=== PATIENT | male | born 1970 | race American Indian/Alaskan Native ===

== ENCOUNTER 2018-11-14 15:27 | Emergency (ER) | payer OTHER ==
[2018-11-14] MEDS ORDERED: HYDROcod/ACETAM 5/325 MG TABLET PO STA (16:20)
--- NOTE | 2018-11-14 16:23 | ED Physician Documentation ---
PD HPI UPPER EXT INJURY - Stated complaint Stated Complaint: RT SHOULDER PX - Chief complaint Chief Complaint: Trauma Ext - History obtained from History obtained from: Patient - History of Present Illness Location: Right (48-year-old gentleman who is up-to-date on tetanus fell a few feet off a ladder, injured his right shoulder reaching for the ladder while he was going down and also scraped his left elbow. Pain in the right shoulder is moderate to severe. No head or neck injury.) Review of Systems Cardiac: denies: Chest pain / pressure, Palpitations Respiratory: denies: Dyspnea, Cough GI: denies: Abdominal Pain Musculoskeletal: denies: Neck pain, Back pain PD PAST MEDICAL HISTORY - Present Medications Home Medications: Ambulatory Orders Medication Instructions Recorded Confirmed Hydrocodone/Acetaminophen 1 - 2 each PO Q6H PRN #14 tablet 11/14/18 [Hydrocodon-Acetaminophen 5-325] - Allergies Allergies/Adverse Reactions: Allergies Allergy/AdvReac Type Severity Reaction Status Date / Time No Known Drug Allergies Allergy Verified 11/14/18 15:43 PD ED PE NORMAL - Vitals Vital signs reviewed: Yes - General General: Alert and oriented X 3, No acute distress - Neck Neck: Supple, no meningeal sign, No bony TTP - Extremities Extremities: Other (Right shoulder is mildly tender posteriorly. He has basically no range of motion in internal or external rotation or abduction but I am able to get him off the bed a little bit with passive abduction. Diminished sensation over the deltoid and in all areas of the hand and normal strength. There is a small abrasion over the left elbow without tenderness or limited range of motion.) - Neuro Neuro: Alert and oriented X 3, Normal speech Results - Vitals Vitals: Vital Signs - 24 hr 11/14/18 11/14/18 15:37 17:34 Temperature 36.4 C L 36.3 C L Heart Rate 77 63 Respiratory 16 12 Rate Blood Pressure 151/96 H 159/93 H O2 Saturation 98 96 Oxygen O2 Source Room air - Rads (name of study) c SPINE ct Radiology: EMP read contemporaneously (DDD WITH R NF NARROWING) XR R shoulder and L elbow Radiology: EMP read contemporaneously (normal) PD MEDICAL DECISION MAKING - ED course ED course: 48-year-old gentleman who was reaching out while falling from a ladder and injured his right shoulder. Most consistent with a rotator cuff but range of motion is so limited on evaluation that is hard to say. He does not seem dislocated. He also has diminished sensation throughout the right arm. He has had trouble in the past with disc disease on the right and had a foraminal surgery a few years ago on the right but his numbness throughout the right arm is worse today. He has no neck tenderness though. Departure - Departure Disposition: 01 Home, Self Care Clinical Impression: Right rotator cuff tear, Abrasion of left elbow, Cervical radiculopathy at C5 Condition: Good Record reviewed to determine appropriate education?: Yes Instructions: ED Torn Rotator Cuff Follow-Up: [facility] [Provider Group] - Within 1 week Prescriptions: Hydrocodone/Acetaminophen [Hydrocodon-Acetaminophen 5-325] 1 - 2 each PO Q6H PRN #14 tablet PRN Reason: pain Comments: Come out of the sling several times a day and do the exercises as shown. Call the orthopedics office today or tomorrow for the next available appointment. Do not drink or drive while taking narcotic pain medication. Note that many narcotic pain relievers also contain Tylenol/acetaminophen. Please ensure that your total dose of acetaminophen from all sources does not exceed 3 g (3000 mg) per day. You may get constipated while on this medication. Take a stool softener such as Colace twice a day while you are on it. Also add an zqsx-mai-deqznbl laxative such as senna or MiraLAX on any day that you do not have a bowel movement. If you received a narcotic pain medication or sedative while in the emergency department, do not drive for the next 24 hours. Your blood pressure was elevated today on check into the emergency department. This does not mean that you have hypertension, it is a common phenomenon to come to the emergency department and have elevated blood pressure. I recommend that you see your primary care physician within the week to have it rechecked when you are feeling better. Forms: Activity restrictions Discharge Date/Time: 11/14/18 17:55
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
--- NOTE | 2018-11-14 17:23 | CT Report ---
Reason: fall, right arm paresthesia Procedure Date: 11/14/2018 Accession Number: [id number] / [id number] Procedure: CT - CERVICAL SPINE WO CPT Code: FULL RESULT: EXAM: CT CERVICAL SPINE WITHOUT CONTRAST DATE: 11/14/2018 05:02 PM. HISTORY: Fall, right arm paresthesia. COMPARISONS: None. TECHNIQUE: Thin-section axial images were acquired of the cervical spine without contrast. Post-processing: Coronal and sagittal reformats. Other: None. In accordance with CT protocol optimization, one or more of the following dose reduction techniques were utilized for this exam: automated exposure control, adjustment of mA and/or KV based on patient size, or use of iterative reconstructive technique. FINDINGS: Alignment: No scoliosis or spondylolisthesis. Bones: No fracture or bone lesion. Interspace Levels/Facets: C1-C2: Unremarkable. C2-C3: Unremarkable. C3-C4: Unremarkable. C4-C5: Unremarkable. C5-C6: Mild posterior bulging disk osteophyte complex resulting in mild right neural foraminal stenosis. C6-C7: Mild posterior degenerative bulging disk osteophyte complex resulting in mild right neural foraminal stenosis. C7-T1: Unremarkable. Musculature: Normal. No fatty atrophy. Other: The paravertebral and prevertebral soft tissues are unremarkable. The lung apices are clear. IMPRESSION: 1. No cervical spine fracture or malalignment. 2. Degenerative bulging disk osteophyte complexes at C5-C6 and C6-C7 resulting in mild right neural foraminal stenosis. RADIA
[2018-11-14 17:35] VITALS: BP 159/93
== END 2018-11-14 17:55 | disposition home or self-care (01) ==
LOC: ED 15:27
DX: S46.011A Strain of muscle(s) and tendon(s) of the rotator cuff of right shoulder, initial encounter (principal); S50.312A Abrasion of left elbow, initial encounter; W11.XXXA Fall on and from ladder, initial encounter; M50.122 Cervical disc disorder at C5-C6 level with radiculopathy; R03.0 Elevated blood-pressure reading, without diagnosis of hypertension
CPT/HCPCS: 72125; 73030; 73080; 99283; A9270

== ENCOUNTER 2019-05-31 11:22 | Emergency (ER) | payer OTHER ==
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
[2019-05-31 16:06] VITALS: BP 150/80
== END 2019-05-31 16:05 | disposition home or self-care (01) ==
LOC: ED 11:22
DX: S46.811A Strain of other muscles, fascia and tendons at shoulder and upper arm level, right arm, initial encounter (principal); V43.52XA Car driver injured in collision with other type car in traffic accident, initial encounter; Y92.410 Unspecified street and highway as the place of occurrence of the external cause; M50.123 Cervical disc disorder at C6-C7 level with radiculopathy; M48.02 Spinal stenosis, cervical region
CPT/HCPCS: 72141; 99283; 99284

== ENCOUNTER 2022-06-20 16:06 | Emergency (ER) | payer OTHER ==
[2022-06-20 16:16] VITALS: BP 155/92
--- NOTE | 2022-06-20 16:30 | ED Physician Documentation ---
PD HPI LOWER EXT INJURY - Stated complaint Stated Complaint: LT KNEE INJ - Chief complaint Chief Complaint: Ext Problem - History obtained from History obtained from: Patient - Additional information Additional information: Patient is a 52-year-old presenting for evaluation of left knee pain that has been present since the end of March. Patient was on a ladder and slid on the ladder injuring his left knee. He reports having daily pain since that time but has continued to work While wearing a knee brace. He has not had prior evaluation for this knee. He has had prior injury to this knee with a meniscus tear. Patient has been using Aleve regularly.Pain is worse with movements and ambulating. It is better at rest. He denies injury elsewhere. Review of Systems Constitutional: denies: Fever Cardiac: denies: Chest pain / pressure Respiratory: denies: Dyspnea GI: denies: Abdominal Pain Musculoskeletal: reports: Joint pain Neurologic: denies: Headache, Head injury PD PAST MEDICAL HISTORY - Past Surgical History Past Surgical History: Yes Ortho: Rotator cuff repair, Other - Present Medications Home Medications: Ambulatory Orders Medication Instructions Recorded Confirmed Cyclobenzaprine [Flexeril] 10 mg PO TID PRN #20 tablet 05/31/19 predniSONE [Prednisone] 40 mg PO DAILY #10 tablet 05/31/19 Lidocaine Patch 5% [Lidoderm Patch] 1 patch TOP DAILY PRN #10 patch 06/20/22 - Allergies Allergies/Adverse Reactions: Allergies Allergy/AdvReac Type Severity Reaction Status Date / Time No Known Drug Allergies Allergy Verified 06/20/22 16:16 - Social History Does the pt smoke?: No Smoking Status: Never smoker Does the pt drink ETOH?: Yes Does the pt have substance abuse?: No PD ED PE NORMAL - General General: Alert and oriented X 3, No acute distress, Well developed/nourished - HEENT HEENT: Atraumatic - Neck Neck: Supple, no meningeal sign - Cardiac Cardiac: RRR - Respiratory Respiratory: No respiratory distress - Derm Derm: Warm and dry - Extremities Extremities: No deformity, No tenderness to palpate, No edema, No calf tenderness / cord, Other (No laxity or instability noted to left knee, no erythema or swelling; Pain with range of motion; Distal pulses intact) Results - Vitals Vitals: Vital Signs - 24 hr 06/20/22 16:13 Temperature 35.8 C L Heart Rate 73 Respiratory 16 Rate Blood Pressure 155/92 H O2 Saturation 99 Oxygen O2 Source Room air PD Medical Decision Making - ED course Complexity details: reviewed results, re-evaluated patient ED course: Patient presenting for evaluation of left knee pain that occurred 4 months ago. He is ambulatory. I do not see signs of infection, erythema. Neurovascularly intact. His x-rays negative for fracture or dislocation. Discussed other causes of pain and that patient would likely need a PCP for further evaluation. Patient is receptive to trial of lidocaine patches. He is counseled on concerning symptoms to return for. Departure - Departure Disposition: 01 Home, Self Care Clinical Impression: Left knee injury Condition: Stable Instructions: ED Knee Pain [facility] Follow-Up: Manisha Cabrera PA-C [Provider Admit Priv/Credential] - Prescriptions: Lidocaine Patch 5% [Lidoderm Patch] 1 patch TOP DAILY PRN #10 patch PRN Reason: pain Comments: The x-ray of your left knee results are as follows IMPRESSION: No acute left knee fracture or dislocation. Mild to moderate tricompartmental osteoarthritis most notably in medial femoral tibial compartment. No significant joint effusion. No gross soft tissue abnormalities. Please have close follow-up with your primary care doctor as you may need further testing or treatment for your left knee. I included the name of a provider that is accepting new patients this week.I have also sent a prescription for lidocaine patches to the [facility] pharmacy.
--- NOTE | 2022-06-20 16:48 | XRAY Report ---
PROCEDURE: Knee 3 View LT INDICATIONS: fall in sept/pain TECHNIQUE: 4 views of the left knee(s) were acquired. COMPARISON: None. FINDINGS: Bones: No fractures or dislocations. Mild to moderate tricompartmental osteoarthritis in left knee i s seen most notably in medial femoral tibial compartment. No suspicious bony lesions. Soft tissues: No joint effusion. No suspicious soft tissue calcifications. IMPRESSION: No acute left knee fracture or dislocation. Mild to moderate tricompartmental osteoarthr itis most notably in medial femoral tibial compartment. No significant joint effusion. No gross soft tissue abnormalities. Reviewed by: Timothy Brush MD on 06/20/2022 4:47 PM PST Approved by: Timothy Brush MD on 06/20/2022 4:47 PM PST Station ID: [id number]
[2022-06-20] MEDS: LIDOCAINE PATCH 5% TOP STA (17:19)
== END 2022-06-20 17:21 | disposition home or self-care (01) ==
LOC: ED 16:06
DX: S89.92XA Unspecified injury of left lower leg, initial encounter (principal); W11.XXXA Fall on and from ladder, initial encounter; Y99.0 Civilian activity done for income or pay
CPT/HCPCS: 1040M; 73562; 99282; 99283; A9270

== ENCOUNTER 2022-07-12 09:12 | Emergency (ER) | payer OTHER, MEDICAID ==
--- NOTE | 2022-07-12 09:55 | XRAY Report ---
PROCEDURE: Chest 1 View X-Ray INDICATIONS: Chest pain TECHNIQUE: One view of the chest was acquired. COMPARISON: None. FINDINGS: Surgical changes and devices: None. Lungs and pleura: No pleural effusions or pneumothorax. Lungs are clear. Mediastinum: Mediastinal contours appear normal. Heart size is normal. Bones and chest wall: No suspicious bony lesions. Overlying soft tissues appear unremarkable. IMPRESSION: No acute pulmonary process. Reviewed by: Adina Thompson MD on 07/12/2022 9:54 AM [facility] Approved by: Adina Thompson MD on 07/12/2022 9:54 AM [facility] Station ID: [id number]
[2022-07-12 10:00] LABS: BASOPHILS % (AUTO) 0.7 %; EOSINOPHILS # (AUTO) 0.2 10^3/uL (0.0-0.7); EOSINOPHILS % (AUTO) 2.6 %; HGB - HEMOGLOBIN 14.5 g/dL (14.0-18.0); LYMPHOCYTES # (AUTO) 1.3 10^3/uL (1.5-3.5); LYMPHOCYTES % (AUTO) 21.7 %; MEAN CORPUSCULAR HEMOGLOBIN 31.8 pg (27.0-31.0); MEAN CORPUSCULAR HGB CONC 33.7 g/dL (32.0-36.0); MEAN CORPUSCULAR VOLUME 94.3 fL (80.0-94.0); MEAN PLATELET VOLUME 8.8 fL (7.4-11.4); MONOCYTES # (AUTO) 0.6 10^3/uL (0.0-1.0); MONOCYTES % (AUTO) 9.4 %; NEUTROPHILS % (AUTO) 65.4 %; PLT - PLATELET COUNT 182 10^3/uL (130-450); RED BLOOD COUNT 4.56 10^6/uL (4.70-6.10); RED CELL DISTRIBUTION WIDTH 13.4 % (12.0-15.0); WHITE BLOOD COUNT 6.1 x10^3/uL (4.8-10.8)
[2022-07-12 10:21] LABS: ALBUMIN 4.3 g/dL (3.2-5.5); ALBUMIN/GLOBULIN RATIO 1.3 (1.0-2.2); BILIRUBIN,TOTAL 0.7 mg/dL (0.2-1.0); CREATININE 0.8 mg/dL (0.6-1.2); POTASSIUM 4.2 mmol/L (3.5-5.0); TOTAL PROTEIN 7.6 g/dL (6.7-8.2)
--- NOTE | 2022-07-12 12:31 | ED Physician Documentation ---
PD HPI CHEST PAIN - Stated complaint Stated Complaint: SOA/CHEST PX - Chief complaint Chief Complaint: Cardiac - History obtained from History obtained from: Patient - Additional information Additional information: The patient comes to the emergency department with chief complaint of encompasses his left chest and radiates into his shoulder and neck that has been going on on and off for the last month. He states it only happens when he is at work. The patient states his work situation is extremely stressful right now and that he has been having a lot of negative interactions with coworkers. He states he is trying to resolve the issue but that the stress just keeps going on and on. The patient states that in between, when he is at home, he never has any chest pain or shortness of breath. He states that he walks often up to 17,000 steps a day and never has any trouble with this. He states that he has no personal or family history of HI. He is not a diabetic and has no history of hypertension. He is not a smoker. The patient currently does not have a primary care physician. Review of Systems Constitutional: reports: Reviewed and negative Eyes: reports: Reviewed and negative Ears: reports: Reviewed and negative Nose: reports: Reviewed and negative Throat: reports: Reviewed and negative Cardiac: reports: Chest pain / pressure Respiratory: reports: Reviewed and negative GI: reports: Reviewed and negative : reports: Reviewed and negative Skin: reports: Reviewed and negative Musculoskeletal: reports: Reviewed and negative Neurologic: reports: Reviewed and negative Psychiatric: reports: Reviewed and negative Endocrine: reports: Reviewed and negative Immunocompromised: reports: Reviewed and negative PD PAST MEDICAL HISTORY - Past Surgical History Past Surgical History: Yes Ortho: Rotator cuff repair, Other - Present Medications Home Medications: Ambulatory Orders Medication Instructions Recorded Confirmed Alprazolam [Xanax] 0.25 mg PO Q6H PRN #20 tablet 07/12/22 Nitroglycerin [Nitrostat] 0.4 mg SL Q5MIN PRN #25 tablet 07/12/22 - Allergies Allergies/Adverse Reactions: Allergies Allergy/AdvReac Type Severity Reaction Status Date / Time No Known Drug Allergies Allergy Verified 07/12/22 09:31 - Social History Does the pt smoke?: No Smoking Status: Never smoker Does the pt drink ETOH?: Yes Does the pt have substance abuse?: No PD ED PE NORMAL - Vitals Vital signs reviewed: Yes - General General: Alert and oriented X 3, No acute distress, Well developed/nourished - HEENT HEENT: Atraumatic, PERRL, EOMI, Moist mucous membranes - Neck Neck: Supple, no meningeal sign - Cardiac Cardiac: RRR, No murmur, Strong equal pulses - Respiratory Respiratory: No respiratory distress, Clear bilaterally - Abdomen Abdomen: Soft, Non tender, Non distended - Derm Derm: Normal color, Warm and dry, No rash - Extremities Extremities: No deformity, No edema - Neuro Neuro: Alert and oriented X 3 - Psych Psych: Normal mood, Normal affect Results - Vitals Vitals: Vital Signs - 24 hr 07/12/22 07/12/22 07/12/22 09:23 11:21 13:00 Temperature 36.6 C Heart Rate 71 58 L 57 L Respiratory 14 20 18 Rate Blood Pressure 140/103 H 142/100 H 121/104 H O2 Saturation 95 98 98 07/12/22 14:43 Temperature Heart Rate 59 L Respiratory 20 Rate Blood Pressure 147/97 H O2 Saturation 100 Oxygen O2 Source Room air - EKG (time done) 0929 Rate: Rate (enter#) (66) Rhythm: NSR [place]: Normal Intervals: Normal ID QRS: Normal Ischemia: Normal ST segments Compare to prior EKG: Old EKG unavailable Computer interpretation: Agree with computer - Labs Labs: Laboratory Tests 07/12/22 07/12/22 07/12/22 09:55 09:55 09:55 WBC 6.1 RBC 4.56 L Hgb 14.5 Hct 43.0 MCV 94.3 H MCH 31.8 H MCHC 33.7 RDW 13.4 Plt Count 182 MPV 8.8 Neut # (Auto) 4.0 Lymph # (Auto) 1.3 L [place] # (Auto) 0.6 Eos # (Auto) 0.2 Baso # (Auto) 0.0 Absolute Nucleated RBC 0.00 Nucleated RBC % 0.0 Sodium 131 L Potassium 4.2 Chloride 101 Carbon Dioxide 23 Anion Gap 7.0 BUN 20 Creatinine 0.8 Estimated GFR (MDRD) 102 Glucose 114 H Calcium 9.0 Total Bilirubin 0.7 AST 104 H ALT 161 H Alkaline Phosphatase 91 Troponin I High Sens 11.5 Total Protein 7.6 Albumin 4.3 Globulin 3.3 Albumin/Globulin Ratio 1.3 Lipase 55 H Nasal Adenovirus (PCR) Nasal B. parapertussis DNA (PCR) Nasal Coronavir 229E PCR Nasal Coronavir HKU1 PCR Nasal Coronavir NL63 PCR Nasal Coronavir OC43 PCR Nasal Enterovir/Rhinovir PCR Nasal Influenza B PCR Nasal Influenza A PCR Nasal Parainfluen 1 PCR Nasal Parainfluen 2 PCR Nasal Parainfluen 3 PCR Nasal Parainfluen 4 PCR Nasal RSV (PCR) Nasal B.pertussis DNA PCR Nasal C.pneumoniae (PCR) Joseph Human Metapneumo PCR Nasal M.pneumoniae (PCR) Nasal SARS-CoV-2 (PCR) 07/12/22 07/12/22 12:32 14:08 WBC RBC Hgb Hct MCV MCH MCHC RDW Plt Count MPV Neut # (Auto) Lymph # (Auto) [place] # (Auto) Eos # (Auto) Baso # (Auto) Absolute Nucleated RBC Nucleated RBC % Sodium Potassium Chloride Carbon Dioxide Anion Gap BUN Creatinine Estimated GFR (MDRD) Glucose Calcium Total Bilirubin AST ALT Alkaline Phosphatase Troponin I High Sens 11.3 Total Protein Albumin Globulin Albumin/Globulin Ratio Lipase Nasal Adenovirus (PCR) NOT DETECTED Nasal B. parapertussis DNA (PCR) NOT DETECTED Nasal Coronavir 229E PCR NOT DETECTED Nasal Coronavir HKU1 PCR NOT DETECTED Nasal Coronavir NL63 PCR NOT DETECTED Nasal Coronavir OC43 PCR NOT DETECTED Nasal Enterovir/Rhinovir PCR NOT DETECTED Nasal Influenza B PCR NOT DETECTED Nasal Influenza A PCR NOT DETECTED Nasal Parainfluen 1 PCR NOT DETECTED Nasal Parainfluen 2 PCR NOT DETECTED Nasal Parainfluen 3 PCR NOT DETECTED Nasal Parainfluen 4 PCR NOT DETECTED Nasal RSV (PCR) NOT DETECTED Nasal B.pertussis DNA PCR NOT DETECTED Nasal C.pneumoniae (PCR) NOT DETECTED Joseph Human Metapneumo PCR NOT DETECTED Nasal M.pneumoniae (PCR) NOT DETECTED Nasal SARS-CoV-2 (PCR) NOT DETECTED - Rads (name of study) Chest x-ray Radiology: Final report received, See rad report (Negative) PD Medical Decision Making - ED course Complexity details: reviewed results, re-evaluated patient, considered differential, d/w patient ED course: The patient was worked up with labs, EKG, and chest x-ray. He was treated symptomatically with ibuprofen, nitroglycerin, and Ativan. The initial work-up was negative. A repeat troponin was then done and also negative. The patient was feeling better symptomatically and felt he was stable for discharge home. I have given him follow-up instructions, as he needs to get established with primary care and talk about having a stress test done. We have discussed the usual indications for return, as well. Departure - Departure Disposition: 01 Home, Self Care Clinical Impression: Chest pain Qualifiers: Chest pain type: unspecified Qualified Code(s): R07.9 - Chest pain, unspecified Condition: Stable Instructions: ED Chest Pain Atypical Unkn Cause Follow-Up: Ariel Richey MD [Provider Admit Priv/Credential] - Prescriptions: Nitroglycerin [Nitrostat] 0.4 mg SL Q5MIN PRN #25 tablet PRN Reason: Chest Pain Alprazolam [Xanax] 0.25 mg PO Q6H PRN #20 tablet PRN Reason: Anxiety Comments: Your EKG, chest x-ray, and all of your labs look good. There is no evidence of a heart attack at this time. It is possible that all of your symptoms are due to anxiety and stress associated with your job since the symptoms seem to mainly come up when you are having an upsetting time at work. However, it is important that you get established with primary care as soon as possible and talk to them about possibly having a stress test done to close the loop on any possibility of cardiac disease. If you develop further chest pain, shortness of breath, facial sweating, nausea, and or other concerning symptoms that seem to be worse than usual or persistent, please return to the emergency department, either here or elsewhere. Otherwise, please make the soonest possible appointment in primary care to follow-up. Prescriptions for nitroglycerin and Xanax have been electronically transmitted to the [facility], your pharmacy of choice on record. Please take these medications as needed. You should also consider taking a baby aspirin once a day. Discharge Date/Time: 07/12/22 14:54
[2022-07-12] MEDS ORDERED: IBUPROFEN 600 MG TABLET PO STA (12:32)
[2022-07-12] MEDS ORDERED: LORazepam 1 MG TABLET PO STA (12:32)
[2022-07-12] MEDS ORDERED: NITROGLYCERIN SL 0.4 MG TABLET SL STA (12:32)
[2022-07-12 13:46] LABS: B. PARAPERTUSSIS- RESP PCR PAN NOT DETECTED; B. PERTUSSIS- RESP PCR PANEL NOT DETECTED; C. PNEUMONIAE- RESP PCR PANEL NOT DETECTED; CORONAVIRUS 229E-RESP PCR NOT DETECTED; CORONAVIRUS HKU1-RESP PCR NOT DETECTED; CORONAVIRUS NL63-RESP PCR NOT DETECTED; CORONAVIRUS OC43-RESP PCR NOT DETECTED; HUMAN METAPNEUMOVIRUS NOT DETECTED; INFLUENZA A- RESP PCR PANEL NOT DETECTED; INFLUENZA B - RESP PCR PANEL NOT DETECTED; M. PNEUMONIAE- RESP PCR PANEL NOT DETECTED; PARAINFLUENZA VIRUS 1 NOT DETECTED; PARAINFLUENZA VIRUS 2 NOT DETECTED; PARAINFLUENZA VIRUS 3 NOT DETECTED; PARAINFLUENZA VIRUS 4 NOT DETECTED; RHINOVIRUS/ENTEROVIRUS NOT DETECTED; RSV- RESP PCR PANEL NOT DETECTED; SARS-CoV-2 -RESP PCR PANEL NOT DETECTED
[2022-07-12 14:44] VITALS: BP 147/97
== END 2022-07-12 14:54 | disposition home or self-care (01) ==
LOC: ED 09:12
DX: R07.89 Other chest pain (principal)
CPT/HCPCS: 36415; 71045; 80053; 83690; 84484; 85025; 87633; 93005; 99284; A9270; J8499